=== PATIENT | female | born 1970 | race Caucasian/White ===

== ENCOUNTER 2021-03-17 10:31 | Emergency (ER) | payer OTHER, MEDICAID ==
[~2021-03-17] VITALS: Ht 162.6 cm; Wt 54.7 kg
[2021-03-17 10:40] VITALS: BP 122/74
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
--- NOTE | 2021-03-17 12:54 | NUR ---
DR. BORGES BEDSIDE EVALUATING PT
[2021-03-17] MEDS ORDERED: KETOROLAC 60 MG/2 ML VIAL IM ONE (12:55)
[2021-03-17] MEDS ORDERED: TRAM50TA3 PO (13:11)
[2021-03-17 13:33] VITALS: BP 120/73
--- NOTE | 2021-03-17 13:33 | NUR ---
Patient discharged with v/s stable. Written and verbal after care instructions ABOUT ARTHRITIS AND MUSCULOSKELETAL PAIN given and explained. Patient alert, oriented and verbalized understanding of instructions. Ambulatory with steady gait. All questions addressed prior to discharge. ID band removed. Patient advised to follow up with PMD. Rx of TRAMADOL given. Patient educated on indication of medication including possible reaction and side effects. Opportunity to ask questions provided and answered.
== END 2021-03-17 13:33 | disposition home or self-care (01) ==
LOC: MED 10:31
DX: M25.59 Pain in other specified joint (principal); F17.210 Nicotine dependence, cigarettes, uncomplicated; Z88.5 Allergy status to narcotic agent; Z88.1 Allergy status to other antibiotic agents
CPT/HCPCS: 96372; 99283; J1885

== ENCOUNTER 2021-04-11 16:34 | Emergency (ER) | payer OTHER, MEDICAID ==
[~2021-04-11] VITALS: Ht 162.6 cm; Wt 56.2 kg
[~2021-04-11 16:34] MED LIST: TRAM50TA3 PO
--- NOTE | 2021-04-11 16:39 | NUR ---
PT W/C ASSISTED TO BED 8
[2021-04-11 16:40] VITALS: BP 113/79
--- NOTE | 2021-04-11 16:45 | NUR ---
51 Y/O FEMALE C/O NECK PAIN RADIATING DOWN BACK DOWN TO LEFT LEG X5 DAYS. PT UNABLE TO AMBULATE AT THIS TIME, W/C ASSISTED TO BED. PT STATED THAT SHE WAS MOVING ITEMS ON TUESDAY WHEN THE PAIN STARTED. PT RATES PAIN 10/10 THAT SHE DESCRIBES SHOOTING "NERVE PAIN". PT A/O X4 WITH EVEN AND UNLABORED RESPIRATIONS. PMH:MS AND ARTHRITIS ALLERGIES:SEE CHART
--- NOTE | 2021-04-11 16:48 | NUR ---
DR REYNOSO AT BEDSIDE EVALUATING PT
[2021-04-11] MEDS ORDERED: KETOROLAC 30 MG/ML VIAL IM ONE (17:00)
[2021-04-11] MEDS ORDERED: diazePAM 5 MG TAB PO ONE (17:00)
[2021-04-11] MEDS ORDERED: DEXAMETHASONE 4 MG TAB PO ONE (17:00)
--- NOTE | 2021-04-11 18:03 | NUR ---
PT REPORTS POSITIVE RELIEF OF MEDICATIONS, DR REYNOSO MADE AWARE
[2021-04-11] MEDS ORDERED: IBUP-2213 PO ×2 (18:08→18:25)
[2021-04-11] MEDS ORDERED: METH-1681 PO ×2 (18:08→18:25)
--- NOTE | 2021-04-11 18:22 | NUR ---
Patient discharged with v/s stable. Written and verbal after care instructions ABOUT ACUTE BACK PAIN given and explained. Patient alert, oriented and verbalized understanding of instructions. Ambulatory with steady gait. All questions addressed prior to discharge. ID band removed. Patient advised to follow up with PMD. Rx of IBUPROFEN AND ROBAXIN given. Patient educated on indication of medication including possible reaction and side effects. Opportunity to ask questions provided and answered.
== END 2021-04-11 18:22 | disposition home or self-care (01) ==
LOC: MED 16:34
DX: M62.830 Muscle spasm of back (principal)
CPT/HCPCS: 96372; 99284; J1885